=== PATIENT | female | born 1960 | race Caucasian/White ===

== ENCOUNTER 2016-04-26 14:10 | Outpatient (RCR) | payer BC ==
[~2016-04-26 14:10] MED LIST: ALPR.5T; CEPH500C PO; DIPH50CA33; MULT1CAP27 PO; OXYC20TA4; PANT40TA PO; PROP1TAB77; RNT150T PO; VITAMIN E; [UNRECOGNIZED DRUG - OTHER]
--- OUTSIDE RECORDS SUMMARY | 2016-04-26 14:13 | XMS REPORT | Continuity of Care Document ---
Author Author [facility] Organization [facility] Address Unknown Phone Unavailable Care Team Providers Care Academic Success Coordinator Name Role Phone ALPHONSE BRASHER MD PCP Insurance Providers Payer Name Policy Number Subscriber Name Relationship [facility] [id number] Ava Siu 19 Self / Same As Patient Advance Directives Directive Response Recorded Date/Time Advance Directives No 08/25/13 7:14pm Resuscitation Status Full Code 08/25/13 7:14pm Problems Medical Problems Problem Onset Date Status Laceration of finger Unknown Active Medications Medication Dose Route Sig Days/Qty Instructions Order Date Discontinued Date Status [Aromicin] 25 Mg DAILY 07/14/08 08/25/13 Discontinued Alprazolam 0.5 Mg BEDTIME 07/14/08 Active Propoxyphene HCl/Acetaminophen 07/14/08 04/10/10 Discontinued Vitamin E 800 U BEDTIME 07/14/08 Active Oxycodone HCl 07/26/09 04/10/10 Discontinued Diphenhydramine HCl 07/26/09 04/10/10 Discontinued Multivitamins 1 Each PO DAILY 04/10/10 Active Ranitidine HCl 300 Mg PO BEDTIME 30 Qty 04/10/10 08/25/13 Discontinued Pantoprazole Sodium 40 Mg PO DAILY 08/25/13 Active Cephalexin Monohydrate (Keflex) 1 Each PO THREE TIMES A DAY 15 Qty 10/01 Active Social History Social History Problem Response Recorded Date/Time Alcohol Use Occasionally Uses 08/25/2013 7:14pm Recreational Drug Use No 08/25/2013 7:14pm Sexually Transmitted Disease No 08/25/2013 7:14pm HIV/AIDS No 08/25/2013 7:14pm Smoking Status Never a Smoker 08/25/2013 7:14pm Query Response Start Date Stop Date Smoking Status Never a Smoker Hospital Discharge Instructions No hospital discharge instructions. Plan of Care No plan of care. Functional Status No functional status results. Allergies, Adverse Reactions, Alerts Allergen Type Severity Reaction Status Last Updated No Known Allergies Allergy Mild Active 07/14/08 Immunizations Name Given Type Tetanus Booster (TDap) More than 5yrs Historical Tdap 08/25/13 Administered Vital Signs Acute Vital Signs Vital Response Date/Time Temperature (Fahrenheit) 97.2 degrees F (97.6 - 99.5) Temperature Source Temporal Pulse Rate (adult) 81 bpm (60 - 90) Respiratory Rate 20 bpm (12 - 24) O2 Sat by Pulse Oximetry 98 % (88 - 100) Blood Pressure 137/101 mm Hg Pain Pain Intensity 5 Height (Feet) 5 feet Height (Inches) 7 inches Height (Calculated Centimeters) 170.904600 cm Weight (Pounds) 210 pounds Weight (Calculated Kilograms) 95.520578 kilograms Calculated BMI 32.89 Results Test Source Date Result Interp. Ref. Range Comments Activated Partial Thromboplast Time April 10, 2010 8:20am 29 SEC N 24 -35 Alanine Aminotransferase (ALT/SGPT) April 06, 2013 1:08pm 38 U/L N 30 -65 Albumin April 06, 2013 1:08pm 4.0 G/DL N 3.4-5.0 Alkaline Phosphatase April 06, 2013 1:08pm 118 U/L N 50-136 Aspartate Amino Transf (AST/SGOT) April 06, 2013 1:08pm 22 U/L N 15- 37 B-Type Natriuretic Peptide April 10, 2010 8:20am < 5.0 PG/ML L 5.0- 100.0 BUN/Creatinine Ratio April 06, 2013 1:08pm 20 - Basophils # (Auto) April 06, 2013 1:08pm 0.0 10^3/uL N 0.0-0.1 Basophils (%) (Auto) April 06, 2013 1:08pm 0 % N 0-10 Blood Urea Nitrogen April 06, 2013 1:08pm 16 MG/DL N 7-18 C-Reactive Protein High Sensitivity April 10, 2010 8:20am 2.11 H MG/ L - Interpretative data is available online at:[email or web address] Enter Test Number:[id number] CA 27.29 April 06, 2013 1:08pm 7.5 U/ML - Calcium Level April 06, 2013 1:08pm 9.2 MG/DL N 8.5-10.1 Carbon Dioxide Level April 06, 2013 1:08pm 30 MMOL/L N 21-32 Chloride Level April 06, 2013 1:08pm 106 MMOL/L N 101-110 Cholesterol Level April 10, 2010 8:20am 157 MG/DL N -200 Creatinine April 06, 2013 1:08pm 0.8 MG/DL N 0.6-1.3 Direct Bilirubin March 08, 2009 9:19am 0.1 MG/DL N 0.0-0.30 Eosinophils # (Auto) April 06, 2013 1:08pm 0.1 10^3/uL N 0.0-0.3 Eosinophils (%) (Auto) April 06, 2013 1:08pm 2 % N 0-10 Glucose Level April 06, 2013 1:08pm 100 MG/DL N 74-106 HDL Cholesterol April 10, 2010 8:20am 34 MG/DL L 35-60 Hematocrit April 06, 2013 1:08pm 41 % N 35-52 Hemoglobin April 06, 2013 1:08pm 14.3 G/DL N 11.5-16.0 LDL Cholesterol April 10, 2010 8:20am 94 MG/DL N 0-129 Lactate Dehydrogenase August 24, 2008 1:48pm 135 U/L N 100-190 Lymphocytes # (Auto) April 06, 2013 1:08pm 1.5 X 10^3 N 1.0-4.0 Lymphocytes (%) (Auto) April 06, 2013 1:08pm 25 % N 12-44 Mean Corpuscular Hemoglobin April 06, 2013 1:08pm 33 PG N 25-34 Mean Corpuscular Hemoglobin Concent April 06, 2013 1:08pm 35 G/DL N 32-36 Mean Corpuscular Volume April 06, 2013 1:08pm 94 FL N 80-99 Mean Platelet Volume April 06, 2013 1:08pm 8.5 FL N 7.4-10.4 Monocytes # (Auto) April 06, 2013 1:08pm 0.4 X 10^3 N 0.0-1.0 Monocytes (%) (Auto) April 06, 2013 1:08pm 7 % N 0-12 Neutrophils # (Auto) April 06, 2013 1:08pm 4.1 X 10^3 N 1.8-7.8 Neutrophils (%) (Auto) April 06, 2013 1:08pm 67 % N 42-75 Platelet Count April 06, 2013 1:08pm 253 10^3/uL N 130-400 Potassium Level April 06, 2013 1:08pm 3.9 MMOL/L N 3.6-5.0 Prothromb Time International Ratio April 10, 2010 8:20am 0.9 N 0.8- 1.4 INTERPRETIVE DATASUGGESTED THERAPEUTIC RANGE FOR INR'S : VENOUS THROMBOSIS, PULMONARY EMBOLISM, OR PREVENTION OF SYSTEMIC EMBOLISM (EG. IN ATRIAL FIBRILLATION): 2.0 - 3.0 MECHANICAL PROSTHETIC HEART VALVES: 2.5 - 3.5* *NOTE: INR'S UP TO 4.5 MAY BE NECESSARY IN SELECTED GROUPS OF HIGH RISK PATIENTS. [employer] CONSENSUS CONFERENCE ON ANTITHROMBOTIC THERAPY (2000). Prothrombin Time April 10, 2010 8:20am 12.2 SEC N 12.2-14.7 Red Blood Count April 06, 2013 1:08pm 4.38 10^6/uL N 4.35-5.85 Red Cell Distribution Width April 06, 2013 1:08pm 12.6 % N 10.0-14.5 Sodium Level April 06, 2013 1:08pm 143 MMOL/L N 135-145 Total Bilirubin April 06, 2013 1:08pm 0.5 MG/DL N 0.0-1.0 Total Protein April 06, 2013 1:08pm 7.7 G/DL N 6.4-8.2 Triglycerides Level April 10, 2010 8:20am 143 MG/DL N 30.0-150.0 Urine 5-HIAA Interpretation January 06, 2010 9:03am NORMAL - TEST INFORMATION: 5-HIAA, URINE5-Hydroxyindoleacetic acid (5-HIAA) results are expressed as a ratio to creatinine excretion (mg/gcr). HIAA mass per day (mg/d) is not reported if the urine collection is a random, other than 24 hours, or for a urine volume less than 400 mL/d. Performed by [facility], [facility] [place] [address] [email or web address], Damaso Stewart MD Lab. Director Urine Collection Duration January 06, 2010 9:03am 24 HOURS - 24 HOUR URINE SPECIMEN Urine Creatinine 24 Hour January 06, 2010 9:03am Not Performed - Urine Serotonin January 06, 2010 9:03am 3 MG/D - 24 HOUR URINE SPECIMEN Urine Total Volume January 06, 2010 9:03am 2500 ML - 24 HOUR URINE SPECIMEN VLDL Cholesterol April 10, 2010 8:20am 29 MG/DL N 5-40 White Blood Count April 06, 2013 1:08pm 6.1 10^3/uL N 4.3-11.0 Urine 5-HIAA mg/L January 06, 2010 9:03am 1.2 MG/L - 24 HOUR URINE SPECIMEN Estimat Glomerular Filtration Rate April 06, 2013 1:08pm > 60 - GFR INTERPRETIVE DATA UNITS FOR ESTIMATED GFR (eGFR): mL/min/1.73 M2 REFERENCE RANGE FOR ESTIMATED GFR (eGFR) eGFR NORMAL eGFR >60 MODERATELY DECREASED eGFR 30-59 SEVERLY DECREASED eGFR 15-29 KIDNEY FAILURE <15 (OR DIALYSIS) Urine Creatinine mg/Day January 06, 2010 9:03am 1325 MG/D - 24 HOUR URINE SPECIMEN Urine Creatinine (5-HIAA) January 06, 2010 9:03am 53 MG/DL - 24 HOUR URINE SPECIMEN Procedures No known history of procedures. Encounters Encounter Location Date/Time Departed Emergency Room [facility] 08/25/13 7:04pm Registered Clinic [facility] 07/27/13 2:14pm Recent Diagnosis
[2016-04-26 14:44] LABS: BASOPHILS % (AUTO) 1 % (0-10); EOSINOPHILS # (AUTO) 0.1 10^3/uL (0.0-0.3); EOSINOPHILS % (AUTO) 2 % (0-10); LYMPHOCYTES # (AUTO) 1.8 X 10^3 (1.0-4.0); LYMPHOCYTES % (AUTO) 29 % (12-44); MEAN CORPUSCULAR HEMOGLOBIN 33 PG (25-34); MEAN CORPUSCULAR HGB CONC 34 G/DL (32-36); MEAN CORPUSCULAR VOLUME 95 FL (80-99); MEAN PLATELET VOLUME 8.4 FL (7.4-10.4); MONOCYTES # (AUTO) 0.5 X 10^3 (0.0-1.0); MONOCYTES % (AUTO) 8 % (0-12); NEUTROPHILS # (AUTO) 3.8 X 10^3 (1.8-7.8); NEUTROPHILS % (AUTO) 61 % (42-75); PLATELET COUNT 282 10^3/uL (130-400); RED CELL DISTRIBUTION WIDTH 12.7 % (10.0-14.5); WHITE BLOOD COUNT 6.3 10^3/uL (4.3-11.0)
[2016-04-26 15:15] LABS: ALANINE AMINOTRANSFERASE 20 U/L (0-55); ANION GAP 9 MMOL/L (5-14); ASPARTATE AMINO TRANSFERASE 22 U/L (5-34); BILIRUBIN,TOTAL 0.5 MG/DL (0.1-1.0); BLOOD UREA NITROGEN 14 MG/DL (7-18); BUN/CREATININE RATIO 18; CALCIUM 8.9 MG/DL (8.5-10.1); CARBON DIOXIDE 24 MMOL/L (21-32); CHLORIDE 106 MMOL/L (98-107); GFR ESTIMATED > 60; GLUCOSE 102 MG/DL (70-105); SODIUM 139 MMOL/L (135-145); TOTAL PROTEIN 6.6 G/DL (6.4-8.2)
== END 2016-07-25 | disposition home or self-care (01) ==
LOC: ONC 14:10
PROVIDERS: ATTEND Internal Medicine Hematology & Oncology
DX: Z08 Encounter for follow-up examination after completed treatment for malignant neoplasm (principal); Z85.3 Personal history of malignant neoplasm of breast; Z85.038 Personal history of other malignant neoplasm of large intestine; I10 Essential (primary) hypertension; K21.9 Gastro-esophageal reflux disease without esophagitis; Z72.0 Tobacco use; Z79.899 Other long term (current) drug therapy
CPT/HCPCS: 36415; 80053; 85025; 99213

== ENCOUNTER → 2016-10-18 | Outpatient (CLI) | payer BC ==
--- NOTE | 2016-10-18 22:49 | Diagnostic Imaging Report ---
EXAM: Digital mammogram, bilateral diagnostic. INDICATION: Left breast carcinoma. COMPARISON: This study was compared to the prior exams of 10/10/15, 10/06/14 and 07/27/13. At this time, there are no current complaints. The patient has had a prior lumpectomy in the upper-outer aspect of the left breast. FINDINGS: The postsurgical changes involving the upper aspect of left breast seen previously are again evident and no different. There is no sign of recurrent malignancy on the left. The overall appearance of the left breast is otherwise stable. On the craniocaudad view of the right breast, in the far lateral aspect of the breast, there is a faint area of slightly increased density. This finding could not be identified with certainty on the MLO or XCC views and the compression rolled views of this area show no definite abnormality. There is no tomographic abnormality either. I suspect this is fibroglandular tissue alone but I would recommend that ultrasound be performed for further study. IMPRESSION: 1. Ultrasound would be recommended for further evaluation of the small area of increased density in the lateral aspect of the right breast. 2. There is no evidence for malignancy on the left. ACR BI-RADS Category 0: Incomplete. (Needs additional imaging evaluation). Result letter will be mailed to the patient. Note: At least 10% of breast cancer is not imaged by mammography. Dictated by: Dictated on workstation # [id number]
--- NOTE | 2016-10-18 22:51 | Diagnostic Imaging Report ---
EXAM: Ultrasound of the right breast. INDICATION: Abnormal mammogram FINDINGS: The diagnostic mammogram performed earlier today noted a small area of slightly increased density in the lateral aspect of the breast. This finding was not conclusive for malignancy on the additional mammographic views but ultrasound was suggested for further evaluation. On this exam, there is no discrete solid or cystic mass. I suspect the density seen on the mammogram was secondary to fibroglandular tissue alone. IMPRESSION: There is no evidence for malignancy of the right breast. ACR BI-RADS Category 1: Negative. Result letter will be mailed to the patient. Note: At least 10% of breast cancer is not imaged by mammography. Dictated by: Dictated on workstation # [id number]
== END ==
LOC: RAD 13:41
PROVIDERS: ATTEND Internal Medicine Hematology & Oncology
DX: C50.812 Malignant neoplasm of overlapping sites of left female breast (principal)
CPT/HCPCS: 76641; 77066

== ENCOUNTER 2017-04-25 14:39 | Outpatient (RCR) | payer BC ==
[2017-04-25 15:00] LABS: BASOPHILS % (AUTO) 1 % (0-10); EOSINOPHILS # (AUTO) 0.2 10^3/uL (0.0-0.3); EOSINOPHILS % (AUTO) 3 % (0-10); HEMATOCRIT 42 % (35-52); HEMOGLOBIN 14.7 G/DL (11.5-16.0); LYMPHOCYTES # (AUTO) 2.3 X 10^3 (1.0-4.0); LYMPHOCYTES % (AUTO) 30 % (12-44); MEAN CORPUSCULAR HEMOGLOBIN 34 PG (25-34); MEAN CORPUSCULAR HGB CONC 35 G/DL (32-36); MEAN CORPUSCULAR VOLUME 96 FL (80-99); MEAN PLATELET VOLUME 8.8 FL (7.4-10.4); MONOCYTES # (AUTO) 0.5 X 10^3 (0.0-1.0); MONOCYTES % (AUTO) 6 % (0-12); NEUTROPHILS # (AUTO) 4.6 X 10^3 (1.8-7.8); NEUTROPHILS % (AUTO) 61 % (42-75); PLATELET COUNT 251 10^3/uL (130-400); RED BLOOD COUNT 4.34 10^6/uL (4.35-5.85); WHITE BLOOD COUNT 7.6 10^3/uL (4.3-11.0)
[2017-04-25 15:19] LABS: ALANINE AMINOTRANSFERASE 19 U/L (0-55); ALBUMIN 4.4 GM/DL (3.2-4.5); ALKALINE PHOSPHATASE 66 U/L (40-136); BILIRUBIN,TOTAL 0.5 MG/DL (0.1-1.0); BUN/CREATININE RATIO 36; CALCIUM 9.5 MG/DL (8.5-10.1); CARBON DIOXIDE 25 MMOL/L (21-32); CHLORIDE 103 MMOL/L (98-107); CREATININE SERUM 0.84 MG/DL (0.60-1.30); GFR ESTIMATED > 60; GLUCOSE 92 MG/DL (70-105); POTASSIUM 4.2 MMOL/L (3.6-5.0); SODIUM 137 MMOL/L (135-145); TOTAL PROTEIN 7.5 GM/DL (6.4-8.2)
== END 2017-07-24 | disposition home or self-care (01) ==
LOC: ONC 14:39
PROVIDERS: ATTEND Internal Medicine Hematology & Oncology
DX: Z08 Encounter for follow-up examination after completed treatment for malignant neoplasm (principal); Z85.3 Personal history of malignant neoplasm of breast; Z85.038 Personal history of other malignant neoplasm of large intestine; I10 Essential (primary) hypertension; K21.9 Gastro-esophageal reflux disease without esophagitis; Z72.0 Tobacco use; Z79.899 Other long term (current) drug therapy
CPT/HCPCS: 36415; 80053; 85025; 99213

== ENCOUNTER → 2018-10-17 | Outpatient (CLI) | payer BC ==
--- NOTE | 2018-10-17 12:59 | Diagnostic Imaging Report ---
EXAM: Digital mammogram, bilateral screening COMPARISON: This study was compared to the prior exams of 10/14/2017 and 10/18/2016. The patient did undergo a lumpectomy for carcinoma on the left breast in 2004. There are no current complaints. FINDINGS: The postsurgical changes involving the left breast seen previously is again evident and no different. There is no sign of recurrent malignancy on the left. There are scattered fibroglandular densities in both breasts which could obscure a lesion. Overall, there has been no significant change when compared to the prior exam. There is no primary or secondary sign of malignancy noted. IMPRESSION: There is no evidence for malignancy. ACR BI-RADS Category 1: Negative. Result letter will be mailed to the patient. Note: At least 10% of breast cancer is not imaged by mammography. Dictated by: Dictated on workstation # [id number]
== END ==
LOC: RAD 08:08
PROVIDERS: ATTEND Nurse Practitioner Family
DX: Z12.31 Encounter for screening mammogram for malignant neoplasm of breast (principal); M76.62 Achilles tendinitis, left leg
CPT/HCPCS: 77067

== ENCOUNTER → 2019-04-30 | Outpatient (CLI) | payer BC | LOC: CARD 12:56 | PROVIDERS: ATTEND Internal Medicine Cardiovascular Disease | DX: I10 Essential (primary) hypertension (principal); C18.1 Malignant neoplasm of appendix; C50.919 Malignant neoplasm of unspecified site of unspecified female breast; E66.09 Other obesity due to excess calories | CPT/HCPCS: 93306 ==

== ENCOUNTER → 2019-05-04 | Outpatient (CLI) | payer BC ==
[~2019-05-04] VITALS: Ht 170 cm; Wt 92.0 kg
[~2019-05-04] MED LIST changes: +REGADENOSON 0.4 MG/5 ML SYR (LEXISCAN) IV ONE
[2019-05-04] MEDS: CATHETER FLUSH 10 ML SYR IV PRN ×2 (07:44→08:57)
[2019-05-04 08:53] VITALS: BP 135/76
--- NOTE | 2019-05-04 14:36 | STRESS TEST ---
DATE OF SERVICE: 05/04/2019 LEXISCAN MYOVIEW STRESS TEST REPORT REFERRING PHYSICIAN: ROCÍO GUAJARDO MD Baseline heart rate 61, baseline blood pressure 129/79. Baseline EKG is sinus rhythm with no ischemic changes. In summary, the patient was injected with 10.94 mCi of technetium-99 Myoview and the resting images were obtained. Then, the patient received 0.4 mg of Lexiscan followed by 31.6 mCi of technetium-99 Myoview. Throughout the test, there were no EKG changes. The resting and stress images were reviewed and compared in the short axis, horizontal long axis, and vertical long axis views. Review of the images showed breast attenuation with typical female pattern. No significant ischemia or infarction. SSS 1, SDS 1. TID value 0.93. On the gated images, the left ventricle appeared to be normal size with normal contractility. Calculated ejection fraction 68%. CONCLUSION: 1. The patient tolerated Lexiscan well. 2. Breast attenuation with typical female pattern. No significant ischemia or infarction on SPECT images. 3. Normal left ventricular size with normal contractility. Calculated ejection fraction 68%. Job ID: [id number] DocumentID: [id number] Dictated Date: 05/04/2019 11:45:50 Paint Mixer Hand Date: 05/04/2019 14:35:00 Dictated By: LLOYD DUDLEY MD
== END ==
LOC: CARD 07:34
PROVIDERS: ATTEND Internal Medicine Cardiovascular Disease
DX: I10 Essential (primary) hypertension (principal); C18.1 Malignant neoplasm of appendix; C50.919 Malignant neoplasm of unspecified site of unspecified female breast; E66.09 Other obesity due to excess calories
CPT/HCPCS: 78452; 93017

== ENCOUNTER → 2019-11-24 | Outpatient (CLI) | payer BC ==
[~2019-11-24] MED LIST changes: -REGADENOSON 0.4 MG/5 ML SYR (LEXISCAN) IV ONE
--- NOTE | 2019-11-24 14:23 | Diagnostic Imaging Report ---
INDICATION: Routine screening. COMPARISON: 10/17/2018 and 10/14/2017. TECHNIQUE: 2D and 3D bilateral screening mammography was performed with CAD. FINDINGS: Scattered fibroglandular densities are identified bilaterally. An intraparenchymal lymph node in the outer right breast is stable. Lumpectomy changes in the upper outer left breast are again noted. No new mass or malignant appearing microcalcifications are seen. There are surgical clips in the left axilla. IMPRESSION: No mammographic features suspicious for malignancy are identified. ACR BI-RADS Category 2: Benign findings. Result letter will be mailed to the patient. Note: At least 10% of breast cancer is not imaged by mammography. Dictated by: Dictated on workstation # [id number]
== END ==
LOC: RAD 13:05
PROVIDERS: ATTEND Nurse Practitioner Family
DX: Z12.31 Encounter for screening mammogram for malignant neoplasm of breast (principal)
CPT/HCPCS: 77063; 77067

== ENCOUNTER → 2020-12-13 | Outpatient (CLI) | payer BC ==
--- NOTE | 2020-12-13 12:42 | Diagnostic Imaging Report ---
Indication: Routine screening. Comparison is made with prior mammogram 11/24/2019 and 10/17/2018. 2-D and 3-D bilateral screening mammography was performed with CAD. Scattered fibroglandular densities are identified bilaterally. Postlumpectomy changes in the upper posterior left breast near the axillae are noted appears stable. There are multiple surgical clips present. There are benign calcifications. No mass or malignant-appearing microcalcifications are seen. Intraparenchymal lymph node the upper outer right breast is stable. IMPRESSION: BI-RADS Category 2 No mammographic features suspicious for malignancy are identified. ACR BI-RADS Category 2: Benign findings. Result letter will be mailed to the patient. Note: At least 10% of breast cancer is not imaged by mammography. Dictated by: Dictated on workstation # [id number]
== END ==
LOC: RAD 13:00
PROVIDERS: ATTEND Nurse Practitioner Family
DX: Z12.31 Encounter for screening mammogram for malignant neoplasm of breast (principal); Z98.890 Other specified postprocedural states
CPT/HCPCS: 77063; 77067

== ENCOUNTER → 2021-12-19 | Outpatient (CLI) | payer BC ==
--- NOTE | 2021-12-20 10:11 | Diagnostic Imaging Report ---
INDICATION: Routine screening. COMPARISON: 12/13/2020 and 11/24/2019. TECHNIQUE: 2D and 3D bilateral screening mammography was performed with CAD. FINDINGS: Scattered fibroglandular tissues are identified bilaterally. There is a benign intraparenchymal lymph node in the outer right breast which appears stable. There are post lumpectomy changes in the axillary portion of the left breast which appear stable. No new masses or malignant-appearing microcalcifications are seen. The axillae are unremarkable. IMPRESSION: No mammographic features suspicious for malignancy are identified. ACR BI-RADS Category 2: Benign findings. Result letter will be mailed to the patient. Note: At least 10% of breast cancer is not imaged by mammography. Dictated by: Dictated on workstation # [id number]
== END ==
LOC: RAD 15:45
PROVIDERS: ATTEND Family Medicine
DX: Z12.31 Encounter for screening mammogram for malignant neoplasm of breast (principal)
CPT/HCPCS: 77063; 77067

== ENCOUNTER → 2023-01-16 | Outpatient (CLI) | payer BC ==
--- NOTE | 2023-01-16 12:59 | Diagnostic Imaging Report ---
INDICATION: Routine screening. COMPARISON: 12/19/2021 and 12/13/2020. TECHNIQUE: 2D and 3D bilateral screening mammography was performed with CAD. FINDINGS: Scattered fibroglandular densities are identified bilaterally. Post-therapeutic changes with multiple surgical clips in the upper outer left breast and left axilla are again noted. No residual or recurrent mass is identified. The peripherally calcified nodule in the upper left breast is noted and stable, likely a small oil cyst. No malignant-appearing microcalcifications are identified. The right axilla is unremarkable. IMPRESSION: No mammographic features suspicious for malignancy are identified. ACR BI-RADS Category 2: Benign findings. Result letter will be mailed to the patient. Note: At least 10% of breast cancer is not imaged by mammography. Dictated by: Dictated on workstation # [id number]
== END ==
LOC: RAD 09:39
PROVIDERS: ATTEND Physician Assistant
DX: Z12.31 Encounter for screening mammogram for malignant neoplasm of breast (principal); Z00.00 Encounter for general adult medical examination without abnormal findings; I10 Essential (primary) hypertension; Z85.3 Personal history of malignant neoplasm of breast
CPT/HCPCS: 77063; 77067